=== PATIENT | male | born 1970 | race Caucasian/White ===

== ENCOUNTER 2020-10-27 22:57 | Emergency (ER) | payer OTHER ==
[2020-10-27 23:05] VITALS: BP 166/95; PULSE 75; RESP 18; TEMP 97.9
--- NOTE | 2020-10-28 00:10 | CT ---
EXAMINATION TYPE: CT brain cspine wo con DATE OF EXAM: 10/28/2020 COMPARISON: None HISTORY: FALL CT DLP: 1269.5 mGycm Automated exposure control for dose reduction was used. Images obtained of the brain and cervical spine without contrast. Ventricles and sulci appear normal. There is no mass effect nor midline shift. There is no sign of in tracranial hemorrhage. The calvarium is intact. There is large external occipital protuberance. Skull base is intact. There is normal aeration of the mastoid sinuses. Cervical vertebra have normal alignment. The disc spaces are fairly normal. There is no compression f racture. There is mild spurring of the endplates in the mid and lower cervical spine. The facet joint s are intact. There is no significant facet arthropathy. IMPRESSION: Mild cervical spondylotic changes. No fracture. Negative CT scan of the brain.
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
[2020-10-28] MEDS: KETOROLAC 15 MG/ML 1 ML VIAL IM STA (01:02)
[2020-10-28] MEDS: ONDANSETRON 4 MG ODT STARTER PACK 2 TAB BTL PO STA (01:04)
== END 2020-10-28 01:11 | disposition home or self-care (01) ==
LOC: EC 22:57
DX: F17.200 Nicotine dependence, unspecified, uncomplicated (principal); S00.01XA Abrasion of scalp, initial encounter; S06.0X0A Concussion without loss of consciousness, initial encounter; W06.XXXA Fall from bed, initial encounter
CPT/HCPCS: 72125; 70450; 99284; 96372; J1885; S0119

== ENCOUNTER 2020-10-31 21:48 | Emergency (ER) | payer OTHER ==
[2020-10-31 22:13] VITALS: TEMP 98.7
[2020-10-31] MEDS ORDERED: PROCHLORPERAZINE INJ 10 MG/2 ML VIAL IVP STA (22:43)
[2020-10-31] MEDS ORDERED: KETOROLAC 15 MG/ML 1 ML VIAL IVP STA (22:43)
[2020-10-31] MEDS ORDERED: diphenhydrAMINE 50 MG/ML 1 ML VIAL IVP STA (22:43)
[2020-10-31] MEDS ORDERED: SODIUM CHLORIDE 0.9% 1,000 ML IV STA (22:43)
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
[2020-10-31] MEDS ORDERED: DIAZEPAM 5 MG/ML 2 ML INJ IVP STA (23:11)
[2020-11-01 00:43] VITALS: BP 142/98; PULSE 58; RESP 16
== END 2020-11-01 00:30 | disposition home or self-care (01) ==
LOC: EC 21:48
DX: G43.909 Migraine, unspecified, not intractable, without status migrainosus (principal); F17.200 Nicotine dependence, unspecified, uncomplicated
CPT/HCPCS: 99284; 96374; 96375 ×4; J1200; J0780; J3360; J2930; J1885